=== PATIENT | male | born 1990 | race Two or more races ===

== ENCOUNTER 2017-09-16 21:13 | Emergency (ER) | payer OTHER ==
--- NOTE | 2017-09-17 01:15 | ER Document Report ---
HPI - HPI Pain Level: 2 Notes: Patient is a 27-year-old male who presents the ED complaining of possible abscess and infection to the right anterior lower knee 2 days. Patient states that he scraped his knee a few days ago, and began noticing some purulent discharge and redness and soreness to the area. Patient states that he is still ambulatory without any difficulties. He has not noticed any knee swelling , warmth, or redness otherwise. He denies any significant medical history or drug allergies. He denies any history of MRSA. Denies any headache, fever, URI , sore throat, chest pain, palpitations, syncope, cough, shortness of breath, wheeze, dyspnea, abdominal pain, nausea/vomiting/diarrhea, or rash. - ROS Notes: REVIEW OF SYSTEMS: CONSTITUTIONAL : Denies fever, chills, or sweats. Denies recent illness. EENT: Denies eye, ear, throat, or mouth pain or symptoms. Denies nasal or sinus congestion or discharge. Denies throat, tongue, or mouth swelling or difficulty swallowing. CARDIOVASCULAR: Denies chest pain. Denies palpitations or racing or irregular heart beat. RESPIRATORY: Denies cough, cold, or chest congestion. Denies shortness of breath, difficulty breathing, or wheezing. GASTROINTESTINAL: Denies abdominal pain or distention. Denies nausea, vomiting , or diarrhea. GENITOURINARY: Denies difficulty urinating, painful urination, burning, frequency, blood in urine, or discharge. MUSCULOSKELETAL: Denies back or neck pain or stiffness. Denies joint pain or swelling. SKIN: see hpi NEUROLOGICAL: Denies dizziness or lightheadedness. Denies headache. Denies weakness or paralysis or loss of use of either side. Denies problems with gait or speech. Denies sensory loss, numbness, or tingling. ALL OTHER SYSTEMS REVIEWED AND NEGATIVE. Dictation was performed using [employer] voice recognition software Past Medical History - Social History Smoking Status: Never Smoker Family History: Reviewed & Not Pertinent Past Surgical History: Reports: Hx Tonsillectomy - 13 years ago - Immunizations Immunizations up to date: Yes Hx Diphtheria, Pertussis, Tetanus Vaccination: Yes Vertical Provider Document - CONSTITUTIONAL Agree With Documented VS: Yes Notes: PHYSICAL EXAMINATION: GENERAL: Well-appearing, well-nourished and in no acute distress. LUNGS: Breath sounds clear to auscultation bilaterally and equal. No wheezes rales or rhonchi. HEART: Regular rate and rhythm without murmurs, rubs, gallops. Musculoskeletal: Rt knee: FROM to passive/active. Strength 5+/5. Non-tender. No deficits. No effusion, erythema, warmth, or swelling. Extremities: No cyanosis, clubbing, or edema b/l. Peripheral pulses 2+. Capillary refill less than 3 seconds. NEUROLOGICAL: Normal speech, normal gait. Normal sensory, motor exams PSYCH: Normal mood, normal affect. SKIN: 2 abrasion areas (approx 1x2cm) noted to the anterior lower knee that are erythemic, minimal induration, and + purulent discharge. No streaks. + tenderness. - INFECTION CONTROL TRAVEL OUTSIDE OF THE [place] IN LAST 30 DAYS: No - RESPIRATORY O2 Sat by Pulse Oximetry: 97 Course - Re-evaluation Re-evalutation: 09/17/17 01:13 Patient is an afebrile, well-hydrated, 27-year-old male who presents the ED with a mild cellulitis to the right anterior lower knee. Vitals are stable. PE is otherwise unremarkable for any neurovascular compromise, septic joint, obvious fracture/dislocation, or other systemic emergent condition at this time. Patient is aware that his condition can change and he needs to monitor symptoms closely and seek medical attention if any acute changes. Wound culture was obtained from the purulent discharge. No incision and drainage warranted today based on H&P. I will send him home with a prescription for Bactrim and Keflex to take as directed. Conservative measures for symptoms otherwise. Wound dressing placed today. Recheck with your PCM in 3-5 days. Return to the ED with any worsening/concerning symptoms otherwise as reviewed discharge. Patient is in agreement. - Vital Signs Vital signs: Temp Pulse Resp BP Pulse Ox 98.2 F 85 12 144/89 H 97 09/16/17 21:21 09/16/17 21:21 09/16/17 21:21 09/16/17 21:21 09/16/17 21:21 Discharge - Discharge Clinical Impression: Cellulitis of right leg Condition: Stable Disposition: HOME, SELF-CARE Instructions: Cephalexin ([facility]), Trimethoprim-Sulfa ([facility]), Cellulitis ([facility]), Epsom Salt Soaks ([facility]), Antibiotic Ointment Protection ([facility]) Additional Instructions: Keep the skin clean Wash with soap and water Epsom salt soaks Tylenol/ibuprofen if needed Triple antibiotic ointment daily Take medication as directed Monitor for any worsening symptoms Recheck with your PCM in 3-5 days Return to the ED with any worsening symptoms and/or development of fever, headache, chest pain, palpitations, syncope, shortness of breath, trouble breathing, abdominal pain, n/v/d, abscess, purulent discharge, red streaks, worsening swelling, rt knee swelling/redness/warmth, or other worsening symptoms that are concerning to you. Prescriptions: Cephalexin Monohydrate [Keflex 500 mg Capsule] 500 mg PO BID #20 capsule Sulfamethoxazole/Trimethoprim [Bactrim Ds Tablet] 1 each PO BID #20 tablet Forms: Elevated Blood Pressure Referrals: [facility] [Provider Group] - Follow up as needed
[2017-09-17] MEDS ORDERED: CEPHALEXIN 500 MG CAPSULE PO ONE (01:16)
[2017-09-17] MEDS ORDERED: SULFAMETHOXAZOLE/TRIMETHOPRIM 800-160 MG TABLET PO ONE (01:16)
[2017-09-17 01:46] VITALS: BP 136/87
== END 2017-09-17 01:40 | disposition home or self-care (01) ==
LOC: ER 21:13
DX: L03.115 Cellulitis of right lower limb (principal)
CPT/HCPCS: 87070; 87077; 87186; 87205; 99283